=== PATIENT | male | born 1960 | race Caucasian/White ===

== ENCOUNTER 2017-01-14 20:50 | Inpatient (IN) | payer MEDICAID ==
[2017-01-14] MEDS ORDERED: VANCOMYCIN HCL INJ 1000 MG VIAL IV ONE (23:02)
[2017-01-14] MEDS ORDERED: LIDOCAINE 1% INJ-PF (10 MG/ML) 30 ML SDV INJ ONE (23:03)
[2017-01-14] MEDS ORDERED: ACETAMINOPHEN 325 MG TABLET PO ONE (23:04)
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
[2017-01-14] MEDS ORDERED: PIPERACILLIN/TAZOBACTAM 3.375 GM VIAL IV ONE (23:14)
[2017-01-15] MEDS ORDERED: FENTANYL CITRATE INJ/PF 100 MCG/2 ML AMPUL IV ONE ×2 (00:08→03:31)
[2017-01-15] MEDS ORDERED: ONDANSETRON HCL INJ/PF 4 MG/2 ML SDV IV ONE (00:09)
[2017-01-15 00:29] LABS: ABSOLUTE BASOPHILS # (AUTO) 0.1 10^3/uL (0.0-0.2); ABSOLUTE LYMPHOCYTES (AUTO) 1.7 10^3/uL (0.5-4.7); ABSOLUTE NEUT (AUTO) 9.1 10^3/uL (1.7-8.2); BASOPHILS % (AUTO) 0.5 % (0-2); EOSINOPHILS % (AUTO) 0.3 % (0-6); HEMATOCRIT 33.6 % (37.9-51.0); HEMOGLOBIN 10.7 g/dL (13.5-17.0); HGB HCT DIFFERENCE -1.5; LYMPHOCYTES % (AUTO) 14.5 % (13-45); MEAN CORPUSCULAR HEMOGLOBIN 26.4 pg (27.0-33.4); MEAN CORPUSCULAR HGB CONC 31.8 g/dL (32.0-36.0); MEAN CORPUSCULAR VOLUME 83 fl (80-97); MONOCYTES % (AUTO) 8.5 % (3-13); RED BLOOD COUNT 4.04 10^6/uL (4.35-5.55); SEGMENTED NEUTROPHILS % (AUTO) 76.2 % (42-78); WHITE BLOOD COUNT 11.9 10^3/uL (4.0-10.5)
[2017-01-15 00:46] LABS: ALANINE AMINOTRANSFERASE 45 U/L (21-72); ALBUMIN 4.1 g/dL (3.5-5.0); ALKALINE PHOSPHATASE 95 U/L (38-126); ANION GAP 17 (5-19); ASPARTATE AMINO TRANSFERASE 45 U/L (17-59); BILIRUBIN,DIRECT 0.3 mg/dL (0.0-0.4); BILIRUBIN,TOTAL 0.9 mg/dL (0.2-1.3); BLOOD UREA NITROGEN 21 mg/dL (7-20); CALCIUM 10.1 mg/dL (8.4-10.2); CARBON DIOXIDE 20 mmol/L (22-30); CHLORIDE 101 mmol/L (98-107); CREATINE KINASE 99 U/L (55-170); CREATININE RESULT 1.06 mg/dL (0.52-1.25); GLUCOSE 100 mg/dL (75-110); POTASSIUM 3.7 mmol/L (3.6-5.0); SODIUM 137.9 mmol/L (137-145); TOTAL PROTEIN 7.9 g/dL (6.3-8.2)
[2017-01-15 00:57] LABS: CREATINE KINASE MB 0.76 ng/mL (<4.55)
[2017-01-15 00:58] LABS: TROPONIN I < 0.012 ng/mL
[2017-01-15 01:20] LABS: VENOUS BLOOD BASE EXCESS -1.5 mmol/L; VENOUS BLOOD HCO3 22.5 mmol/L (20-32); VENOUS BLOOD PCO2 36.5 mmHg (35-63); VENOUS BLOOD PH 7.41 (7.30-7.42)
[2017-01-15 02:22] LABS: URINE BARBITURATES SCREEN NEGATIVE; URINE METHADONE SCREEN NEGATIVE; URINE OPIATES LOW NEGATIVE; URINE PHENCYCLIDINE SCREEN NEGATIVE
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
--- NOTE | 2017-01-15 10:24 | EKG REPORT ---
SEVERITY:- ABNORMAL ECG - SINUS RHYTHM LEFT ATRIAL ABNORMALITY LEFT AXIS DEVIATION LEFT VENTRICULAR HYPERTROPHY BORDERLINE PROLONGED QT INTERVAL : Confirmed by: Latoya Smith 15-Jan-2017 10:24:02
[2017-01-15] MEDS ORDERED: HYDROMORPHONE HCL INJ/PF 2 MG/ML AMPULE ONE (10:29)
[2017-01-15] MEDS ORDERED: FENTANYL CITRATE INJ/PF 100 MCG/2 ML AMPUL ONE (10:29)
[2017-01-15] MEDS ORDERED: MIDAZOLAM 2 MG/2 ML INJ ONE (10:30)
[2017-01-15] MEDS ORDERED: ONDANSETRON HCL INJ/PF 4 MG/2 ML SDV ONE (10:30)
[2017-01-15] MEDS ORDERED: PROPOFOL INJ 200 MG/20 ML VIAL IV ONE ×2 (10:30)
[2017-01-15] MEDS ORDERED: FENTANYL CITRATE INJ/PF 100 MCG/2 ML AMPUL IV PRN ×3 (11:10)
[2017-01-15] MEDS ORDERED: PROMETHAZINE HCL INJ 25 MG/1 ML VIAL IV PRN (11:10)
[2017-01-15] MEDS ORDERED: DIPHENHYDRAMINE HCL 50 MG/ML VIAL IV PRN (11:10)
--- NOTE | 2017-01-15 11:33 | OPERATIVE REPORT E ---
Operative Report NAME: KENDRA YUSUF : 1960 AGE: 56Y DATE OF SURGERY: 01/15/2017 ROOM: ED09 PREOPERATIVE DIAGNOSIS: Abscess left forearm. POSTOPERATIVE DIAGNOSIS: Abscess left forearm. OPERATION: Incision and drainage of left forearm abscess measuring 8 x 4 cm deep down to the muscle. SURGEON: ISA CONNORS M.D. ANESTHESIA: General. INDICATION: This is a 56-year-old male who claims he is having pains in the left forearm and noted to be swelling in the past 3 days. He used to be an IV drug abuser but has been off drug use in the past 7 months. He had multiple abscesses in the past due to IV drug use. DESCRIPTION OF PROCEDURE: After adequate general anesthesia, the left arm was then prepped and draped in the usual sterile fashion. After adequate timeout, the left forearm abscess fluctuant areas were then incised. Gush of foul-smelling purulent material was noted and cultures were obtained. The incision was extended about total of 8 cm long. There was more purulent material underneath the fascia. Following this, the area was then pulse lavaged with 3 liters of saline. Hemostasis was then obtained with electrocautery, though there is still some oozing because of the granulation tissue. The depth of the wound down to the muscle and just below the fascia. The area was subsequently packed with Iodoform gauze. Sterile dressings placed over the Iodoform gauze. The patient tolerated the procedure well. ESTIMATED BLOOD LOSS: About 320 mL. COUNTS: Needle, instrument sponge counts were all correct. DISPOSITION: The patient brought to the recovery room in satisfactory condition. DICTATING PHYSICIAN: ISA CONNORS M.D. [id number] PHY#: [id number] ID: [id number] JOB#: [id number] ACCT: [id number] cc:ISA CONNORS M.D. >
[2017-01-15] MEDS ORDERED: KETOROLAC TROMETHAMINE INJ/PF 30 MG/1 ML SDV ONE (11:38)
[2017-01-15] MEDS: AMOXICILLIN TR/POT CLAVULANATE 500-125 MG TAB PO ONE ×2 (11:49→14:09)
[2017-01-15] MEDS ORDERED: KETOROLAC TROMETHAMINE INJ/PF 30 MG/1 ML SDV IV ONE (12:00)
[2017-01-15] MEDS: HYDROMORPHONE HCL INJ/PF 2 MG/ML AMPULE IV PRN ×2 (13:13→16:59)
[2017-01-15] MEDS ORDERED: OXYCODONE-ACETAMINOPHEN 5-325 MG TABLET PO PRN (19:44)
[2017-01-15] MEDS: KETOROLAC TROMETHAMINE INJ/PF 30 MG/1 ML SDV IV SCH (21:07)
[2017-01-15] MEDS ORDERED: VANCOMYCIN HCL INJ 1000 MG VIAL ONE (21:15)
[2017-01-15] MEDS ORDERED: VANCOMYCIN HCL 1,000 MG in DEXTROSE 5%-WATER 250 ML IV ONE (22:00)
[2017-01-15] MEDS ORDERED: AMOXICILLIN TR/POT CLAVULANATE 250-125 MG TAB ONE (22:35)
[2017-01-15] MEDS ORDERED: AMOXICILLIN TR/POT CLAVULANATE 500-125 MG TAB ONE (22:35)
[2017-01-16] MEDS: KETOROLAC TROMETHAMINE INJ/PF 30 MG/1 ML SDV IV SCH (01:24)
[2017-01-16] MEDS ORDERED: AMOXICILLIN TR/POT CLAVULANATE 500-125 MG TAB PO SCH (06:00)
[2017-01-16 09:17] VITALS: BP 132/77
[2017-01-16] MEDS ORDERED: VANCOMYCIN HCL 1,000 MG in DEXTROSE 5%-WATER 250 ML IV SCH (10:00)
== END 2017-01-16 10:20 | disposition home or self-care (01) | DRG 580 ==
LOC: ER 20:50 → EH 01-15 08:03 → 4N 01-15 12:50
PROVIDERS: ADMIT Surgery; ATTEND Surgery
PROC: 0H9FXZZ Drainage of Right Hand Skin, External Approach (ICD-10-PCS; principal; 2017-01-14)
PROC: 0J9H0ZZ Drainage of Left Lower Arm Subcutaneous Tissue and Fascia, Open Approach (ICD-10-PCS; 2017-01-15)
DX: L03.114 Cellulitis of left upper limb (principal); L03.313 Cellulitis of chest wall; L02.414 Cutaneous abscess of left upper limb; L03.113 Cellulitis of right upper limb; B95.4 Other streptococcus as the cause of diseases classified elsewhere; N40.0 Benign prostatic hyperplasia without lower urinary tract symptoms; Z89.512 Acquired absence of left leg below knee
CPT/HCPCS: 00400; 36415; 71260; 80053; 80307; 82550; 82553; 82803; 83605; 84484; 85025; 87040; 87070; 87075; 87077; 87205; 93005; 93010; J1170; J1885; J2250; J2405; J2543; J2704; J3010; J3370; J3490

== ENCOUNTER 2018-08-17 21:49 | Emergency (ER) | payer MEDICAID ==
[2018-08-17 22:34] LABS: APPEARANCE,URINE CLEAR; BILIRUBIN,URINE NEGATIVE (NEGATIVE); COLOR,URINE STRAW; GLUCOSE, URINE NEGATIVE (NEGATIVE); KETONES,URINE NEGATIVE (NEGATIVE); LEUKOCYTE ESTERASE,URINE NEGATIVE (NEGATIVE); NITRITE,URINE NEGATIVE (NEGATIVE); PROTEIN,URINE NEGATIVE (NEGATIVE); URINE SPECIFIC GRAVITY 1.005; UROBILINOGEN,URINE NEGATIVE mg/dL (<2.0)
[2018-08-17] MEDS ORDERED: LIDOCAINE 5% (700 MG) TRANSDERMAL ADH..PATCH TP ONE (23:15)
[2018-08-17] MEDS ORDERED: ACETAMINOPHEN 325 MG TABLET PO ONE (23:15)
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
[2018-08-17 23:55] VITALS: BP 141/85
== END 2018-08-17 23:56 | disposition home or self-care (01) ==
LOC: ER 21:49
DX: R33.9 Retention of urine, unspecified (principal); I10 Essential (primary) hypertension; Z89.512 Acquired absence of left leg below knee; Z86.14 Personal history of Methicillin resistant Staphylococcus aureus infection; Z88.6 Allergy status to analgesic agent
CPT/HCPCS: 99284; 51702; 81001; J3490 ×2

== ENCOUNTER 2019-02-12 14:51 | Emergency (ER) | payer MEDICAID ==
[2019-02-12 15:04] VITALS: BP 126/82
[2019-02-12] MEDS ORDERED: NORMAL SALINE 1000 ML 1,000 ML IV ONE (15:43)
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
[2019-02-12 16:48] LABS: ABSOLUTE LYMPHOCYTES (AUTO) 0.9 10^3/uL (0.5-4.7); ABSOLUTE MONOCYTES (AUTO) 0.3 10^3/uL (0.1-1.4); ABSOLUTE NEUT (AUTO) 7.6 10^3/uL (1.7-8.2); BASOPHILS % (AUTO) 0.1 % (0-2); EOSINOPHILS % (AUTO) 0.1 % (0-6); HEMOGLOBIN 14.3 g/dL (13.5-17.0); LYMPHOCYTES % (AUTO) 10.6 % (13-45); MEAN CORPUSCULAR HEMOGLOBIN 30.7 pg (27.0-33.4); MEAN CORPUSCULAR HGB CONC 33.2 g/dL (32.0-36.0); MEAN CORPUSCULAR VOLUME 93 fl (80-97); MONOCYTES % (AUTO) 3.7 % (3-13); PLATELET COUNT 163 10^3/uL (150-450); RED BLOOD COUNT 4.64 10^6/uL (4.35-5.55); RED CELL DISTRIBUTION WIDTH 13.8 % (11.5-14.0); SEGMENTED NEUTROPHILS % (AUTO) 85.5 % (42-78); TOTAL CELLS COUNTED % (AUTO) 100 %; WHITE BLOOD COUNT 8.9 10^3/uL (4.0-10.5)
[2019-02-12] MEDS ORDERED: ONDANSETRON 4 MG TAB.RAPDIS PO ONE (17:08)
[2019-02-12] MEDS ORDERED: ACETAMINOPHEN 325 MG TABLET PO ONE (17:09)
[2019-02-12 17:22] LABS: CREATINE KINASE MB 4.09 ng/mL (<4.55); TROPONIN I 0.024 ng/mL
--- NOTE | 2019-02-12 18:39 | EKG REPORT ---
SEVERITY:- OTHERWISE NORMAL ECG - SINUS RHYTHM BORDERLINE LEFT AXIS DEVIATION : Confirmed by: Jackie Noel MD 12-Feb-2019 18:38:41
== END 2019-02-12 17:20 | disposition home or self-care (01) ==
LOC: ER 14:51
DX: R55 Syncope and collapse (principal); I10 Essential (primary) hypertension; R25.2 Cramp and spasm; R11.2 Nausea with vomiting, unspecified; Z88.6 Allergy status to analgesic agent; Z72.0 Tobacco use; N40.0 Benign prostatic hyperplasia without lower urinary tract symptoms; Z89.512 Acquired absence of left leg below knee; F12.10 Cannabis abuse, uncomplicated
CPT/HCPCS: 93005; 99284; 96360; 36415; 82553; 85025; 84484; 71046; 93010; J3490; S0119; J7030